=== PATIENT | female | born 1970 ===

== ENCOUNTER 2022-05-14 10:19 | Inpatient (IN) | payer MEDICAID ==
[~2022-05-14] VITALS: Ht 162.6 cm; Wt 107.3 kg
[2022-05-14 11:10] LABS: BASOPHILS % (AUTO) 0.2 % (0-1); EOSINOPHILS # (AUTO) 0.1 X10'3 (0-0.9); EOSINOPHILS % (AUTO) 0.5 % (0-6); HEMATOCRIT 42.2 % (35.0-45.0); HEMOGLOBIN 14.1 g/dl (12.0-16.0); LYMPHOCYTES # (AUTO) 4.2 X10'3 (1.1-4.8); LYMPHOCYTES % (AUTO) 26.3 % (21-51); MEAN CORPUSCULAR HEMOGLOBIN 30.6 PG (27.0-31.0); MEAN CORPUSCULAR HGB CONC 33.5 g/dL (33.0-36.5); MEAN CORPUSCULAR VOLUME 91.3 FL (78-98); MEAN PLATELET VOLUME 6.8 FL (7.4-10.4); MONOCYTES # (AUTO) 1.1 X10'3 (0-0.9); MONOCYTES % (AUTO) 7.1 % (2-12); NEUTROPHILS # (AUTO) 10.6 X10'3 (1.8-7.7); NEUTROPHILS % (AUTO) 65.9 % (42-75); PLATELET COUNT 351 X10'3 (140-440); RED BLOOD COUNT 4.62 X10'6 (4.20-5.60); RED CELL DISTRIBUTION WIDTH 16.6 % (11.5-14.5)
[2022-05-14 11:27] LABS: ALANINE AMINOTRANSFERASE 36 U/L (12-78); ALBUMIN 3.6 G/DL (3.4-5.0); ALKALINE PHOSPHATASE 76 IU/L (46-116); ANION GAP 14 (8-16); ASPARTATE AMINO TRANSFERASE 17 U/L (10-37); BILIRUBIN,TOTAL 0.4 MG/DL (0.1-1.0); BLOOD UREA NITROGEN 19 MG/DL (7-18); BUN/CREATININE RATIO 27.9 (6.6-38.0); CALCIUM 9.2 MG/DL (8.5-10.1); CHLORIDE 104 MMOL/L (99-107); CREATININE 0.68 MG/DL (0.40-0.90); GLUCOSE 128 MG/DL (70-104); LIPASE 400 U/L (73-393); POTASSIUM 3.7 MMOL/L (3.5-5.1); SODIUM 140 MMOL/L (135-145); TOTAL CARBON DIOXIDE 21.6 MMOL/L (24-32); TOTAL PROTEIN 7.1 G/DL (6.4-8.2); eGFR > 90 ML/MIN
[2022-05-14 12:12] LABS: ANISOCYTOSIS 1+; PLATELET ESTIMATE NORMAL; TOTAL CELLS COUNTED 100
[2022-05-14] MEDS ORDERED: ondansetron/PF 4mg/2ml inj IV ONE (12:40)
[2022-05-14] MEDS ORDERED: normal saline 1000ml 1,000 ML IV ONE (12:40)
[2022-05-14 13:11] LABS: APTT 21 SECONDS (22-32)
[2022-05-14] MEDS ORDERED: METO-384 PO (14:51)
[2022-05-14] MEDS ORDERED: ALPR0.5T9 PO (14:51)
[2022-05-14] MEDS ORDERED: LEVO175T7 PO (14:51)
[2022-05-14] MEDS ORDERED: DEXA4TAB PO (14:51)
[2022-05-14] MEDS ORDERED: HYDR-3972 PO (14:51)
[2022-05-14] MEDS ORDERED: HYDROcodone/acetaminophen 10/325mg tab PO PRN (15:55)
[2022-05-14] MEDS ORDERED: mag hydrox/Alum hydrox/simeth 30ml oral suspension PO PRN (16:20)
[2022-05-14] MEDS ORDERED: acetaminophen 325mg tablet PO PRN ×2 (16:20)
[2022-05-14] MEDS ORDERED: morphine 2 MG/ML inj. syringe IV PRN ×2 (16:20)
[2022-05-14] MEDS ORDERED: magnesium hydroxide 30ml (MOM) UD suspension PO PRN (16:20)
[2022-05-14] MEDS ORDERED: HYDROcodone/acetaminophen 5mg/325mg tablet PO PRN (16:20)
[2022-05-14] MEDS ORDERED: ondansetron/PF 4mg/2ml inj IV PRN (16:20)
[2022-05-14] MEDS: sodium chloride 0.45% 1,000 ML IV SCH (18:00)
[2022-05-14] MEDS: dexamethasone 4mg tablet PO SCH (19:30)
[2022-05-14] MEDS: docusate sod 100mg capsule PO SCH (19:30)
[2022-05-14 22:23] LABS: CLARITY,URINE SLIGHTLY CLOUDY (Clear); COLOR,URINE YELLOW (Yellow); GLUCOSE, URINE NEGATIVE (Neg); KETONES,URINE NEGATIVE (Neg); LEUKOCYTE ESTERASE ,URINE TRACE (Neg); NITRITES, URINE NEGATIVE (Neg); OCCULT BLOOD,URINE SMALL (Neg); PH,URINE 5.5 (4.8-8.0); PROTEIN,URINE NEGATIVE (Neg); URINE HCG NEGATIVE (NEG); UROBILINOGEN,URINE 0.2 E.U/dL (0.2-1.0)
[2022-05-14 22:24] LABS: UA COLLECTION TYPE CLN CATCH MIDSTREAM
[2022-05-14 22:30] LABS: BACTERIA,URINE 1+ /HPF (Neg); MUCUS STRANDS MANY /LPF (Neg); SQUAMOUS EPITHELIAL CELL,UR MODERATE /LPF (FEW); WBC,URINE 0-4 /HPF (0-4)
[2022-05-14 22:31] LABS: YEAST MODERATE /HPF (NEGATIVE)
[2022-05-14 22:44] LABS: URINE AMPHETAMINE SCREEN NEGATIVE (Neg); URINE BARBITUATE SCREEN NEGATIVE (Neg); URINE BENZODIAZEPINES SCREEN NEGATIVE (Neg); URINE CANNABINOID SCREEN POSITIVE (Neg); URINE COCAINE SCREEN NEGATIVE (Neg); URINE METHADONE SCREEN NEGATIVE (Neg); URINE OPIATE SCREEN NEGATIVE (Neg); URINE PHENCYCLIDINE SCREEN NEGATIVE (Neg)
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
[2022-05-15] MEDS: sodium chloride 0.45% 1,000 ML IV SCH ×3 (03:11→22:23)
[2022-05-15] MEDS: HYDROcodone/acetaminophen 10/325mg tab PO PRN ×2 (03:12→19:47)
--- NOTE | 2022-05-15 04:22 | NUR ---
MRI FORM FAXED
[2022-05-15 07:18] LABS: BASOPHILS % (AUTO) 0 % (0-1); EOSINOPHILS % (AUTO) 0.1 % (0-6); HEMATOCRIT 33.9 % (35.0-45.0); HEMOGLOBIN 11.7 g/dl (12.0-16.0); LYMPHOCYTES # (AUTO) 2.2 X10'3 (1.1-4.8); LYMPHOCYTES % (AUTO) 21.5 % (21-51); MEAN CORPUSCULAR HEMOGLOBIN 31.6 PG (27.0-31.0); MEAN CORPUSCULAR HGB CONC 34.5 g/dL (33.0-36.5); MEAN CORPUSCULAR VOLUME 91.6 FL (78-98); MEAN PLATELET VOLUME 6.7 FL (7.4-10.4); MONOCYTES # (AUTO) 0.6 X10'3 (0-0.9); MONOCYTES % (AUTO) 5.8 % (2-12); NEUTROPHILS # (AUTO) 7.4 X10'3 (1.8-7.7); NEUTROPHILS % (AUTO) 72.6 % (42-75); PLATELET COUNT 266 X10'3 (140-440); RED CELL DISTRIBUTION WIDTH 16.6 % (11.5-14.5); WHITE BLOOD COUNT 10.2 X10'3 (4.5-11.0)
[2022-05-15 07:32] LABS: ALBUMIN 2.3 G/DL (3.4-5.0); ANION GAP 9 (8-16); BLOOD UREA NITROGEN 12 MG/DL (7-18); BUN/CREATININE RATIO 32.4 (6.6-38.0); CHLORIDE 98 MMOL/L (99-107); CREATININE 0.37 MG/DL (0.40-0.90); GLUCOSE 80 MG/DL (70-104); TOTAL CARBON DIOXIDE 20.8 MMOL/L (24-32); eGFR > 90 ML/MIN
[2022-05-15 07:34] LABS: POTASSIUM 2.5 MMOL/L (3.5-5.1); SODIUM 128 MMOL/L (135-145)
[2022-05-15 07:35] LABS: CALCIUM 6.3 MG/DL (8.5-10.1)
[2022-05-15] MEDS ORDERED: non-formulary drug (Metoprolol Succinate 1 TAB) PO SCH (08:00)
[2022-05-15] MEDS: docusate sod 100mg capsule PO SCH ×2 (08:57→19:34)
[2022-05-15] MEDS: ALPRAZolam 0.5mg tablet PO SCH (08:58)
[2022-05-15] MEDS: dexamethasone 4mg tablet PO SCH ×2 (08:58→19:47)
[2022-05-15] MEDS: levoTHYROXINE 175mcg tablet PO SCH (09:33)
[2022-05-15 10:01] LABS: ANISOCYTOSIS 1+; PLATELET ESTIMATE NORMAL; SMUDGE CELLS 1+; TOTAL CELLS COUNTED 100
--- NOTE | 2022-05-15 11:43 | NUR ---
OF NOW, X2 PAGES HAVE BEEN SENT FOR DR TURK FOR K COVERAGE. INITIALLY DR HERRING WAS PAGED BUT HE ADVISED HE WAS NOT IN CHARGE OF PATIENT. DR TURK WAS THEN PAGED FOR CRITICAL LAB NOTIFICATION. OF THIS TIME HAS NOT CALLED BACK
[2022-05-15] MEDS ORDERED: potassium CL 10mEq/100ml bag 100 ML IV PRN (12:55)
[2022-05-15] MEDS ORDERED: POTASSIUM BICARB 20meq eff tab 20 MEQ TABLET.EFF PO PRN (12:55)
[2022-05-15] MEDS: POTASSIUM BICARB 20meq eff tab 20 MEQ TABLET.EFF PO PRN ×2 (13:29→18:05)
--- NOTE | 2022-05-15 16:54 | NUR ---
PAGED FOR UPDATE ON ADMISSION/DISCHAREG
[2022-05-15] MEDS: K and/or MAG REPLACEMENT MC SCH (19:34)
[2022-05-15] MEDS ORDERED: metoprolol succinate 25mg (24-HOUR) SR. Tablet PO STA (21:06)
--- NOTE | 2022-05-15 21:08 | NUR ---
BP OF 172/111 RECORDED. RN CALLED AIXA JUAREZ. AIXA JUAREZ ORDERED 25 MG PO METOPROLOL NOW AND TO REPEAT IF BP IS OVER 150 IN 4 HOURS.
[2022-05-16] MEDS ORDERED: metoprolol succinate 25mg (24-HOUR) SR. Tablet PO STA (02:23)
[2022-05-16] MEDS: HYDROcodone/acetaminophen 10/325mg tab PO PRN (04:17)
--- NOTE | 2022-05-16 04:36 | NUR ---
PT REQUESTED TO LEAVE AMA AT 0415. PT SPOKE WITH DR KRUSE AND AGREED TO STAY UNTIL MORNING. RN HELPED PT WALK TO BATHROOM. PT WAS EXTREMELY UNSTEADY ON FEET AND VERY ANXIOUS. PT WAS GIVEN PAIN MEDICATION FOR CHRONIC NECK PAIN AND REPOSITIONED IN BED
--- NOTE | 2022-05-16 06:38 | NUR ---
Assumed patient care at this time. Patient appears to be sleeping comfortably on stretcher.
[2022-05-16] MEDS: K and/or MAG REPLACEMENT MC SCH ×2 (07:58→20:00)
[2022-05-16] MEDS: dexamethasone 4mg tablet PO SCH ×2 (08:13→20:57)
[2022-05-16] MEDS: metoprolol succinate 25mg (24-HOUR) SR. Tablet PO SCH (08:13)
[2022-05-16] MEDS: docusate sod 100mg capsule PO SCH ×2 (08:13→20:57)
[2022-05-16] MEDS: ALPRAZolam 0.5mg tablet PO SCH (08:13)
[2022-05-16] MEDS: levoTHYROXINE 175mcg tablet PO SCH (08:13)
[2022-05-16] MEDS: sodium chloride 0.45% 1,000 ML IV SCH ×2 (08:14→21:42)
--- NOTE | 2022-05-16 08:30 | NUR ---
Patient ate breakfast meal.
[2022-05-16 08:36] LABS: BASOPHILS % (AUTO) 0.1 % (0-1); EOSINOPHILS % (AUTO) 0.2 % (0-6); HEMATOCRIT 41.8 % (35.0-45.0); HEMOGLOBIN 14.3 g/dl (12.0-16.0); LYMPHOCYTES # (AUTO) 3.2 X10'3 (1.1-4.8); LYMPHOCYTES % (AUTO) 24.1 % (21-51); MEAN CORPUSCULAR HEMOGLOBIN 31.4 PG (27.0-31.0); MEAN CORPUSCULAR HGB CONC 34.2 g/dL (33.0-36.5); MEAN CORPUSCULAR VOLUME 91.8 FL (78-98); MEAN PLATELET VOLUME 6.7 FL (7.4-10.4); MONOCYTES % (AUTO) 7.6 % (2-12); NEUTROPHILS # (AUTO) 9.2 X10'3 (1.8-7.7); PLATELET COUNT 301 X10'3 (140-440); RED BLOOD COUNT 4.56 X10'6 (4.20-5.60); RED CELL DISTRIBUTION WIDTH 16.5 % (11.5-14.5); WHITE BLOOD COUNT 13.5 X10'3 (4.5-11.0)
[2022-05-16 08:49] LABS: ALBUMIN 3.5 G/DL (3.4-5.0); ANION GAP 6 (8-16); BLOOD UREA NITROGEN 14 MG/DL (7-18); CHLORIDE 101 MMOL/L (99-107); GLUCOSE 115 MG/DL (70-104); MAGNESIUM 1.9 MG/DL (1.5-2.4); POTASSIUM 3.9 MMOL/L (3.5-5.1); TOTAL CARBON DIOXIDE 31.1 MMOL/L (24-32); eGFR > 90 ML/MIN
[2022-05-16 08:57] LABS: CALCIUM 9.1 MG/DL (8.5-10.1); SODIUM 138 MMOL/L (135-145)
[2022-05-16 09:32] LABS: TOTAL CELLS COUNTED 100
[2022-05-16 09:33] LABS: ANISOCYTOSIS 1+; PLATELET ESTIMATE NORMAL; SMUDGE CELLS 1+
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
--- NOTE | 2022-05-16 12:30 | NUR ---
Patient ate lunch meal.
--- NOTE | 2022-05-16 14:30 | NUR ---
Attempted to give report to nurse for room 4012, nurse currentlu in a patient's room, will call back.
--- NOTE | 2022-05-16 14:55 | NUR ---
Attempt to call nurse at this time, no answer.
--- NOTE | 2022-05-16 15:16 | NUR ---
spoke to nurse Pilar she said she will call back in few minutes to take report.
--- NOTE | 2022-05-16 15:39 | NUR ---
Report given to nurse SAPNA Quezada.
[2022-05-16 16:00] VITALS: BP 164/97
--- NOTE | 2022-05-16 16:00 | NUR ---
pt brought to 4012B by atm technician. Our tech here entered doorway of room and witnessed atm technician holding WC steady as patient stood and stepped out of chair, immediately falling to floor. She denies injury. States it doesn't matter anyway.
--- NOTE | 2022-05-16 16:20 | NUR ---
brief assessment done. Pt moves all extremities equally but weakly. Affect flat. speech monotone. Repeatedly states when asked a question or need "it doesn't matter", or "I don't have a say in anything anymore anyway". Verifies she wants to be a DNR.
--- NOTE | 2022-05-16 16:36 | NUR ---
Made comfortable in bed. Asked for pericare and sponge bath. Set up with basin and cloths. Assistance offered but refused. Instructed repeatedly to not get up without assistance. Call light given. Bed alarm on.
[2022-05-16 17:00] VITALS: BP 147/96
--- NOTE | 2022-05-16 18:00 | NUR ---
Dr Evans" from behavioral health here to see patient.
--- NOTE | 2022-05-16 18:30 | NUR ---
Problems reprioritized. Patient report given, questions answered & plan of care reviewed with Uyen ALEJO.
--- NOTE | 2022-05-16 18:38 | NUR ---
Patient in room ORTHO 4012. I have received report from SAPNA CAT and had the opportunity to ask questions and assume patient care. Addendum: 05/16/22 at 1840 by Uyen Hallman RN Amended: Links added.
--- NOTE | 2022-05-16 19:27 | NUR ---
PLEASANT TALKATIVE, SITTING UP IN THE CHAIR LEFT HAND SEISMOGRAPH COMPUTER 1/2 STRONG THE RIGHT HAND. PT ABLE TO MOVE LEFT LEG BUT C/O OF LEG WEAKNESS AND DRAGGING. C/O SENSATION LEFT SIDE TINGLING AND FINE MOTOR SKILLS OFF. PT STATES CHALLENGE TO MOVE TONGUE TO LEFT SIDE OF MOUTH BUT IT IS IMPROVING.
[2022-05-16 22:00] VITALS: BP 143/106
--- NOTE | 2022-05-17 01:50 | NUR ---
up with assistance to bedside commode, pt had cramping and loose stool .
[2022-05-17] MEDS: sodium chloride 0.45% 1,000 ML IV SCH ×3 (05:35→20:57)
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
[2022-05-17 06:00] VITALS: BP 150/105
--- NOTE | 2022-05-17 06:20 | NUR ---
Problems reprioritized. Patient report given, questions answered & plan of care reviewed with SAPNA MCCOY. Addendum: 05/17/22 at 0621 by Uyen Hallman RN Amended: Links added.
--- NOTE | 2022-05-17 06:45 | NUR ---
Patient in room ORTHO 4012B. I have received report from SAPNA JAMES and had the opportunity to ask questions and assume patient care.
[2022-05-17 06:59] LABS: ALBUMIN 3.5 G/DL (3.4-5.0); ANION GAP 8 (8-16); BLOOD UREA NITROGEN 13 MG/DL (7-18); CHLORIDE 102 MMOL/L (99-107); CREATININE 0.59 MG/DL (0.40-0.90); GLUCOSE 144 MG/DL (70-104); POTASSIUM 3.7 MMOL/L (3.5-5.1); SODIUM 139 MMOL/L (135-145); TOTAL CARBON DIOXIDE 28.8 MMOL/L (24-32); eGFR > 90 ML/MIN
[2022-05-17 07:00] LABS: BASOPHILS % (AUTO) 0.1 % (0-1); EOSINOPHILS % (AUTO) 0.1 % (0-6); HEMATOCRIT 41.3 % (35.0-45.0); LYMPHOCYTES # (AUTO) 2.3 X10'3 (1.1-4.8); LYMPHOCYTES % (AUTO) 18.3 % (21-51); MEAN CORPUSCULAR HEMOGLOBIN 31.2 PG (27.0-31.0); MEAN CORPUSCULAR VOLUME 91.9 FL (78-98); MEAN PLATELET VOLUME 7.1 FL (7.4-10.4); MONOCYTES # (AUTO) 0.7 X10'3 (0-0.9); MONOCYTES % (AUTO) 5.5 % (2-12); NEUTROPHILS # (AUTO) 9.4 X10'3 (1.8-7.7); PLATELET COUNT 333 X10'3 (140-440); RED BLOOD COUNT 4.49 X10'6 (4.20-5.60); RED CELL DISTRIBUTION WIDTH 16.3 % (11.5-14.5); WHITE BLOOD COUNT 12.3 X10'3 (4.5-11.0)
[2022-05-17 07:59] LABS: ANISOCYTOSIS 1+; PLATELET ESTIMATE NORMAL; TOTAL CELLS COUNTED 100
[2022-05-17] MEDS: K and/or MAG REPLACEMENT MC SCH ×2 (08:00→20:00)
[2022-05-17] MEDS: docusate sod 100mg capsule PO SCH ×2 (08:00→20:00)
[2022-05-17] MEDS: dexamethasone 4mg tablet PO SCH ×2 (09:11→20:57)
[2022-05-17] MEDS: levoTHYROXINE 175mcg tablet PO SCH (09:11)
[2022-05-17] MEDS: ALPRAZolam 0.5mg tablet PO SCH (09:11)
[2022-05-17 10:00] VITALS: BP 172/109
[2022-05-17 10:19] LABS: LIPASE 255 U/L (73-393)
[2022-05-17] MEDS: CefTRIAXone/D5W-Rocephin 1gm 50 ML IV SCH (13:45)
[2022-05-17] MEDS: HYDROcodone/acetaminophen 10/325mg tab PO PRN (14:33)
[2022-05-17 18:00] VITALS: BP 172/113
--- NOTE | 2022-05-17 19:34 | NUR ---
Problems reprioritized. Patient report given, questions answered & plan of care reviewed with SRUTHI Brownlee RN.
--- NOTE | 2022-05-17 19:34 | NUR ---
ABOUT MID MORNING PATIENT HAD A VISITOR, WHICH WOULD LATER IDENTIFY THEMSELVES HER . 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 I WENT IN TO THE ROOM TO INTRODUCE MYSELF TO THE VISITOR AND ASSESS THE SITUATION. BOTH WERE CALM AND SEEMED COMFORTABLE. VISITOR EXPRESSED THE PATIENT STATED THAT WE WERE THREATENING THE PATIENT AND THAT WASN'T APPROPRIATE. (THIS WAS ALSO WHAT SHE HAD BEEN SAYING ABOUT HER PARENTS AND TO THE [facility] NURSE). I EXPLAINED THAT I NEVER THREATENED HER AND IF SHE FELT THAT I HAD, I WAS SORRY. DURING THE COURSE OF THE CONVERSATION THE PATIENT EXPRESSED THAT SHE WAS CALLED A DRUG SEEKER AND WE WERE TRYING TO GET HER TO DRUG REHAB AND/OR CUSTODIAL. I EXPRESSED THAT WASN'T NOT HOW I FELT OR THE INFORMATION THAT WAS PASSED ON TO ME OR IN NOTES. AT THAT TIME SHE ASKED FOR PRIVACY WITH HER VISITOR. I PAGED THE DR ABOUT THE PATIENT WANTING TO LEAVE. I ALSO TALKED TO THE CHARGE AND CASE MANAGEMENT ABOUT THE SITUATION. A MECHANICS HANDYMAN CONSULT WAS SUGGESTED. ALSO WE LOOKED THROUGH NOTE AND SAW NO MENTION OF THE PATIENT RESTRICTING VISITOR. WAS ALSO ADVISED TO KEEP A CLOSE EYE AND WATCH FOR TENSION AND TO CALL SECRUITY IF NEEDED. AT THIS TIME [facility] WAS CALLED. DR CALLED BACK AND STATED IF PATIENT WANTED TO LEAVE THEY COULD LEAVE AMA. I WENT INTO THE ROOM A COUPLE MORE TIMES. PATIENT EXPRESSED DESIRE TO LEAVE, PATIENT WAS EDUCATED ON RISKS OF LEAVING AND BENEFITS OF STAYING, PATIENT STILL EXPRESSED DESIRE TO LEAVE. VISITOR EXPRESSED THAT FOR THE PATIENT'S SAFETY IT WOULD BE BEST TO STAY. WHILE I WAS ON LUNCH THE AIDE HEARD PATIENT SCREAMING AND WITNESSED THE VISITOR ON TOP OF PATIENT, LEFT FOOT ON THE FLOOR, RIGHT KNEE ON BED AND HAND CLOSE TO THE SHOULDER HEAD AREA AND IT APPEARED THE VISITOR WAS WHISPERING TO HER. SOON THE VISITOR HEARD THE AIDE COME IN TO ROOM HE JUMPED OFF BED AND HAD THE PATIENT'S ARMS PINNED DOWN TELLING THE PATIENT TO CALM DOWN. ANOTHER NURSE CAME IN TO ASSESS THE ISSUE AND ASKED THE PATIENT WHY SHE WAS SCREAMING AND SHE STATED SHE COULD NOT SAY ANYTHING. SECURITY WAS CALLED AND THE VISITOR WAS ADVISED TO NOT TOUCH THE PATIENT AND IF THEY WERE CALLED AGAIN HE WOULD BE ESCORTED OUT. WHEN I RETURNED I WENT IN TO ASSESS THE SITUATION. THE PATIENT EXPRESSED SHE JUST NEEDED TO GET BETTER, I TOLD HER THAT IS WHY SHE IS HERE AND THE GOAL OF HER STAY. I WAS ABLE TO MAKE HER COMFORTABLE IN STAYING IN OUR CARE AND SHE DECIDED NOT TO LEAVE. THE VISITOR PULLED ME ASIDE AND IN TALKING TO HIM HE EXPRESSED THAT WHILE THE PATIENT WAS ON A PAIN REGIMENT SHE DID NOT ABUSE THE MEDS AND THAT HE WANTED HER TO GET BETTER. THE VISITOR LEFT AT THIS TIME. THE PATIENT LATER EXPRESSED THAT THE NORCO SHE GOT EVERY MONTH GETS TAKEN BY THE VISITOR AND TO CALL THE PHARMACY. SHE ALSO EXPRESSED THAT SHE HAD BEEN LIKE THIS BEFORE AND WORKED REALLY HARD TO GET BETTER AND WANTED TO GET BETTER NOW. I EXPRESSED THAT GETTING HER BETTER WAS THE PLAN. LATER THE PATIENT HAD EXPRESSED TO ONE OF THE AIDE THAT SHE DID NOT WANT THE VISITOR TO BE LET BACK IN. AT THIS TIME I CONTACTED THE [facility] AND WE HAVE MADE THE PATIENT A CONFIDENTIAL PATIENT FOR HER SAFETY.
[2022-05-17 22:00] VITALS: BP 127/86
[2022-05-18 06:00] VITALS: BP 189/121
[2022-05-18 06:24] LABS: BASOPHILS % (AUTO) 0.1 % (0-1); EOSINOPHILS % (AUTO) 0 % (0-6); HEMATOCRIT 45.8 % (35.0-45.0); HEMOGLOBIN 15.4 g/dl (12.0-16.0); LYMPHOCYTES # (AUTO) 2.9 X10'3 (1.1-4.8); LYMPHOCYTES % (AUTO) 20.2 % (21-51); MEAN CORPUSCULAR HEMOGLOBIN 30.9 PG (27.0-31.0); MEAN CORPUSCULAR HGB CONC 33.5 g/dL (33.0-36.5); MEAN CORPUSCULAR VOLUME 92.2 FL (78-98); MEAN PLATELET VOLUME 6.9 FL (7.4-10.4); MONOCYTES # (AUTO) 0.8 X10'3 (0-0.9); MONOCYTES % (AUTO) 5.5 % (2-12); NEUTROPHILS # (AUTO) 10.7 X10'3 (1.8-7.7); NEUTROPHILS % (AUTO) 74.2 % (42-75); PLATELET COUNT 370 X10'3 (140-440); RED BLOOD COUNT 4.97 X10'6 (4.20-5.60); RED CELL DISTRIBUTION WIDTH 16.4 % (11.5-14.5); WHITE BLOOD COUNT 14.4 X10'3 (4.5-11.0)
[2022-05-18 06:33] LABS: ALBUMIN 3.7 G/DL (3.4-5.0); ANION GAP 9 (8-16); BLOOD UREA NITROGEN 11 MG/DL (7-18); CALCIUM 9.1 MG/DL (8.5-10.1); CHLORIDE 101 MMOL/L (99-107); CREATININE 0.61 MG/DL (0.40-0.90); GLUCOSE 121 MG/DL (70-104); MAGNESIUM 1.9 MG/DL (1.5-2.4); POTASSIUM 3.5 MMOL/L (3.5-5.1); SODIUM 139 MMOL/L (135-145); eGFR > 90 ML/MIN
--- NOTE | 2022-05-18 06:43 | NUR ---
Patient in room ORTHO 4012B. I have received report from SRUTHI Brownlee RN and had the opportunity to ask questions and assume patient care.
[2022-05-18 07:48] VITALS: BP 162/113
[2022-05-18] MEDS: levoTHYROXINE 175mcg tablet PO SCH (07:59)
[2022-05-18] MEDS: ALPRAZolam 0.5mg tablet PO SCH (07:59)
[2022-05-18] MEDS: CefTRIAXone/D5W-Rocephin 1gm 50 ML IV SCH (07:59)
[2022-05-18] MEDS: dexamethasone 4mg tablet PO SCH ×2 (07:59→19:31)
[2022-05-18] MEDS: metoprolol succinate 25mg (24-HOUR) SR. Tablet PO SCH (07:59)
[2022-05-18] MEDS: K and/or MAG REPLACEMENT MC SCH ×2 (08:00→19:04)
[2022-05-18] MEDS: docusate sod 100mg capsule PO SCH ×2 (08:00→19:05)
[2022-05-18 10:00] VITALS: BP 153/96
[2022-05-18] MEDS ORDERED: metoprolol succinate 25mg (24-HOUR) SR. Tablet PO SCH (10:40)
[2022-05-18] MEDS: lisinopril 5mg tablet PO SCH (11:06)
[2022-05-18] MEDS ORDERED: hydrALAZINE 20mg/ml inj. IV SCH (14:00)
[2022-05-18 16:15] VITALS: BP 132/98
[2022-05-18 18:00] VITALS: BP 157/97
--- NOTE | 2022-05-18 18:49 | NUR ---
Page sent to MD Leblanc as she had discontinued patient home medication Decadron for which she takes for adrenal insufficiency. Requested to for order to re-order medication as patient takes at home.
--- NOTE | 2022-05-18 18:52 | NUR ---
Received call back from MD Leblanc with orders to restart Decadron at patient home dosage.
--- NOTE | 2022-05-18 19:10 | NUR ---
Problems reprioritized. Patient report given, questions answered & plan of care reviewed with SRUTHI Brownlee RN.
[2022-05-18 22:00] VITALS: BP 115/68
[2022-05-18] MEDS ORDERED: hydrALAZINE 20mg/ml inj. IV PRN (23:00)
[2022-05-19 06:00] VITALS: BP 132/95
--- NOTE | 2022-05-19 06:57 | NUR ---
Patient in room ORTHO 4012B. I have received report from SRUTHI Brownlee RN and had the opportunity to ask questions and assume patient care.
[2022-05-19 07:57] LABS: BASOPHILS % (AUTO) 0.1 % (0-1); EOSINOPHILS % (AUTO) 0.1 % (0-6); HEMATOCRIT 43.9 % (35.0-45.0); LYMPHOCYTES # (AUTO) 3.4 X10'3 (1.1-4.8); LYMPHOCYTES % (AUTO) 22.7 % (21-51); MEAN CORPUSCULAR HEMOGLOBIN 31.3 PG (27.0-31.0); MEAN CORPUSCULAR HGB CONC 34.2 g/dL (33.0-36.5); MEAN CORPUSCULAR VOLUME 91.5 FL (78-98); MEAN PLATELET VOLUME 6.8 FL (7.4-10.4); MONOCYTES # (AUTO) 0.8 X10'3 (0-0.9); MONOCYTES % (AUTO) 5.5 % (2-12); NEUTROPHILS # (AUTO) 10.6 X10'3 (1.8-7.7); NEUTROPHILS % (AUTO) 71.6 % (42-75); PLATELET COUNT 400 X10'3 (140-440); RED CELL DISTRIBUTION WIDTH 16.6 % (11.5-14.5); WHITE BLOOD COUNT 14.8 X10'3 (4.5-11.0)
[2022-05-19] MEDS: docusate sod 100mg capsule PO SCH ×2 (08:00→19:59)
[2022-05-19] MEDS: K and/or MAG REPLACEMENT MC SCH ×2 (08:00→19:59)
[2022-05-19 08:29] LABS: ALBUMIN 3.8 G/DL (3.4-5.0); ANION GAP 16 (8-16); BLOOD UREA NITROGEN 11 MG/DL (7-18); BUN/CREATININE RATIO 19.6 (6.6-38.0); CALCIUM 9.1 MG/DL (8.5-10.1); CHLORIDE 103 MMOL/L (99-107); CREATININE 0.56 MG/DL (0.40-0.90); GLUCOSE 111 MG/DL (70-104); MAGNESIUM 1.7 MG/DL (1.5-2.4); POTASSIUM 3.3 MMOL/L (3.5-5.1); SODIUM 143 MMOL/L (135-145); TOTAL CARBON DIOXIDE 23.8 MMOL/L (24-32); eGFR > 90 ML/MIN
[2022-05-19] MEDS: CefTRIAXone/D5W-Rocephin 1gm 50 ML IV SCH (08:38)
[2022-05-19] MEDS: levoTHYROXINE 175mcg tablet PO SCH (08:38)
[2022-05-19] MEDS: dexamethasone 4mg tablet PO SCH ×2 (08:38→20:01)
[2022-05-19] MEDS: ALPRAZolam 0.5mg tablet PO SCH (08:38)
[2022-05-19] MEDS: metoprolol tartrate 50mg tablet PO SCH ×2 (08:39→20:03)
[2022-05-19] MEDS: lisinopril 5mg tablet PO SCH (08:39)
[2022-05-19 08:49] LABS: PLATELET ESTIMATE NORMAL; TOTAL CELLS COUNTED 100
[2022-05-19 08:50] LABS: ANISOCYTOSIS 1+
[2022-05-19 10:00] VITALS: BP 160/107
--- NOTE | 2022-05-19 12:06 | NUR ---
Initial: Pt admit for neck pain and weakness. Currently on a heart healthy diet and eating poorly, documented with ~25% PO intake of four meals with refusal of the remaining three meals since admit. Pt seen at bedside, limited information obtained as pt appeared distracted and unable to fully respond appropriately to questions being asked. Pt emotional at times during RD visit and expressed inability to focus with all that is going on. Pt states appetite fluctuates and denies any known food allergies or food preferences. Pt states she appreciates anything she's getting and will leave it up to us what she gets on her meal trays. Pt does agree to Ensure with meals, recommend Ensure Enlive TID, pending physician approval in EMR. See below for additional nutrition interventions that were d/w dietary. Pt unsure if she has any issues chewing or swallowing and is unable to recall if she has ever experienced a choking episode with PO intake. Pt provided with RD contact information and encouraged to reach out for any food preferences to optimize PO intake during admit. Patient's behavior during RD visit was d/w SW. LBM 05/18. Will continue to follow closely. Recommendations: 1) Liberalize to regular diet 2) Ensure Enlive TID, pending physician approval in EMR 3) Trial yogurt WB, smoothie BIDLD 4) Encourage PO intake and honor food preferences 5) Bowel care PRN; consider anti-diarrheal if diarrhea persists 6) Scaled weight this admit; subsequent weekly scaled weights Addendum: 05/19/22 at [address] Amended: Links added.
[2022-05-19 14:00] VITALS: BP 126/72
[2022-05-19 18:00] VITALS: BP 137/92
[2022-05-19] MEDS ORDERED: potassium CL 10mEq/100ml bag 100 ML IV PRN (19:35)
[2022-05-19] MEDS ORDERED: magnesium 4gm in 100ml NS 100 ML IV PRN (19:35)
[2022-05-19] MEDS ORDERED: magnesium Cl slow-release 64mg tablet PO PRN (19:35)
[2022-05-19] MEDS ORDERED: potassium Cl 20 mEq SR tablet PO PRN ×2 (19:35)
--- NOTE | 2022-05-19 19:52 | NUR ---
Problems reprioritized. Patient report given, questions answered & plan of care reviewed with SRUTHI Brownlee RN.
[2022-05-19 22:00] VITALS: BP 123/68
[2022-05-20 06:00] VITALS: BP 145/84
--- NOTE | 2022-05-20 06:36 | NUR ---
Patient in room ORTHO 4012. I have received report from almas guevara and had the opportunity to ask questions and assume patient care.
[2022-05-20] MEDS: K and/or MAG REPLACEMENT MC SCH (07:09)
[2022-05-20] MEDS: docusate sod 100mg capsule PO SCH (07:23)
[2022-05-20] MEDS: ALPRAZolam 0.5mg tablet PO SCH (07:24)
[2022-05-20] MEDS: lisinopril 5mg tablet PO SCH (07:24)
[2022-05-20] MEDS: metoprolol tartrate 50mg tablet PO SCH (07:24)
[2022-05-20] MEDS: dexamethasone 4mg tablet PO SCH (07:24)
[2022-05-20] MEDS: levoTHYROXINE 175mcg tablet PO SCH (07:25)
[2022-05-20] MEDS: amox tr/potassium clavulanate 875/125mg TAB PO SCH ×2 (07:27→17:33)
[2022-05-20 11:55] VITALS: BP 119/83
[2022-05-20 15:01] VITALS: BP 144/84
--- NOTE | 2022-05-20 16:10 | NUR ---
PAGED DR TURK RE: PAGER ID: [phone] MESSAGE: GARY TURPIN. PER SS...'[facility] IS WILLING TO TAKE PT BACK TONIGHT. THEY HAVE TO PICK HER UP BEFORE 1730. CAN WE GET A DISCHARGE ORDER? SHE WAS CLEARED BY [facility]. EDIN [id number]
--- NOTE | 2022-05-20 16:51 | NUR ---
2ND PAGE TO DR TURK RE: PAGER ID: [phone] MESSAGE: GARY TURPIN. WE NEED DISCHARGE ORDERS FOR PT TO GO BACK TO [facility] TODAY. FACILITY WILL BE HERE BEFORE 1730. PLEASE LET ME KNOW IF YOU PLAN ON DISCHARGING OR NOT SO I CAN LET THE FACILTIY KNOW. THANKS EDIN [id number]
[2022-05-20] MEDS ORDERED: LISI5TAB22 PO ×2 (17:43)
[2022-05-20] MEDS ORDERED: METO50TA16 PO ×2 (17:43)
--- NOTE | 2022-05-20 18:06 | NUR ---
PT WAS DISCHARGED IN STABLE CONDITION AFTER BEING CLEARED FROM [facility]. SHE WAS DISCHARGED TO '[facility] VIA THEIR STAFF. IV DC CANULA INTACT. ALL BELONGINGS IN HAND. FOLLOW UP INSTRUCTION GIVEN. PT AND STAFF MEMBER NOTIFIED OF MEDICATIONS THAT NEED TO BE PICKED UP FROM [facility]. Addendum: 05/20/22 at 1808 by Marlee Jalloh RN Amended: Links added.
[2022-05-26] MEDS ORDERED: CEPH250T PO (02:46)
[2022-05-26] MEDS ORDERED: HYDR-3972 PO (02:48)
[2022-05-26] MEDS ORDERED: METO-384 PO (02:49)
== END 2022-05-20 18:00 | disposition home or self-care (01) | DRG 347 ==
LOC: ER 10:20 → OBSVTOIN 16:24 → ED HOLD 16:24 → INTOOBSV 16:24 → EEVIPCON 16:24 → ORTHO 4S 05-16 15:50
PROVIDERS: ADMIT Internal Medicine; ATTEND Internal Medicine
DX: M48.02 Spinal stenosis, cervical region (principal); D64.9 Anemia, unspecified; N39.0 Urinary tract infection, site not specified; B96.20 Unspecified Escherichia coli [E. coli] as the cause of diseases classified elsewhere; M51.36 Other intervertebral disc degeneration, lumbar region; E03.9 Hypothyroidism, unspecified; F17.210 Nicotine dependence, cigarettes, uncomplicated; I10 Essential (primary) hypertension; M47.896 Other spondylosis, lumbar region; Z20.822 Contact with and (suspected) exposure to COVID-19; Z66 Do not resuscitate; F41.9 Anxiety disorder, unspecified; Z98.1 Arthrodesis status; Z88.5 Allergy status to narcotic agent; Z79.899 Other long term (current) drug therapy
CPT/HCPCS: 36415; 70450; 70551; 71045; 72141; 72148; 76700; 80048; 80053; 80305; 81001; 81025; 82948; 83690; 83735; 83880; 84132; 84145; 85007; 85025; 85610; 85651; 85730; 86885; 86900; 86901; 87077; 87081; 87088; 87186; 87811; 93005; 96361; 96374; 97116; 97161; 97530; 99285; G0378; J0360; J0696; J2405; J3490; J7030

== ENCOUNTER 2024-04-07 19:09 | Emergency (ER) | payer MEDICAID ==
[~2024-04-07] VITALS: Ht 162.6 cm; Wt 94.4 kg
[~2024-04-07 19:09] MED LIST: ASPI-1071 PO; ATOR40TA71 PO; CLON0.5T4 PO; DEXA4TAB PO; ESCI20TA39 PO; LEVO175T7 PO; LISI2.5T14 PO; METF-1203 PO; METO-384 PO; RISP-32 PO; TRAZ-256 PO
[2024-04-07 19:56] LABS: BASOPHILS # (AUTO) 0.1 X10'3 (0-0.2); BASOPHILS % (AUTO) 0.4 % (0-1); EOSINOPHILS % (AUTO) 0 % (0-6); HEMATOCRIT 44.3 % (35.0-45.0); HEMOGLOBIN 14.8 g/dl (12.0-16.0); LYMPHOCYTES # (AUTO) 2.5 X10'3 (1.1-4.8); LYMPHOCYTES % (AUTO) 20.5 % (21-51); MEAN CORPUSCULAR HEMOGLOBIN 30.2 PG (27.0-31.0); MEAN CORPUSCULAR HGB CONC 33.3 g/dL (33.0-36.5); MEAN CORPUSCULAR VOLUME 90.9 FL (78-98); MONOCYTES # (AUTO) 0.3 X10'3 (0-0.9); MONOCYTES % (AUTO) 2.1 % (2-12); NEUTROPHILS # (AUTO) 9.4 X10'3 (1.8-7.7); PLATELET COUNT 493 X10'3 (140-440); RED BLOOD COUNT 4.88 X10'6 (4.20-5.60); RED CELL DISTRIBUTION WIDTH 16.2 % (11.5-14.5); WHITE BLOOD COUNT 12.2 X10'3 (4.5-11.0)
[2024-04-07 20:06] LABS: ALBUMIN 4.2 G/DL (3.4-5.0); ANION GAP 10 (8-16); BLOOD UREA NITROGEN 17 MG/DL (7-18); BUN/CREATININE RATIO 20.7 (10.0-20.0); CALCIUM 9.7 MG/DL (8.5-10.1); CHLORIDE 103 MMOL/L (99-107); CREATININE 0.82 MG/DL (0.40-0.90); GLUCOSE 152 MG/DL (70-104); SODIUM 139 MMOL/L (135-145); TOTAL CARBON DIOXIDE 26.4 MMOL/L (24-32); eCRCL 69 ML/MIN; eGFR 73 ML/MIN
[2024-04-07 20:15] LABS: ETHANOL < 10 MG/DL (<10)
[2024-04-07] MEDS ORDERED: ACET-2778 PO (20:16)
[2024-04-07 21:29] LABS: URINE AMPHETAMINE SCREEN NEGATIVE (Neg); URINE BARBITUATE SCREEN NEGATIVE (Neg); URINE BENZODIAZEPINES SCREEN NEGATIVE (Neg); URINE CANNABINOID SCREEN NEGATIVE (Neg); URINE COCAINE SCREEN NEGATIVE (Neg); URINE METHADONE SCREEN NEGATIVE (Neg); URINE OPIATE SCREEN NEGATIVE (Neg); URINE PHENCYCLIDINE SCREEN NEGATIVE (Neg)
[2024-04-08] MEDS ORDERED: DEC4T PO (01:00)
[2024-04-08] MEDS ORDERED: SYN0.088T PO (01:02)
[2024-04-08] MEDS ORDERED: METO-467 PO (01:04)
[2024-04-08] MEDS: LORazepam 1 MG tablet PO ONE (01:35)
[2024-04-08] MEDS: haloperidol 5mg tablet PO ONE (01:36)
[2024-04-08] MEDS: diphenhydrAMINE 25mg capsule PO ONE (01:36)
[2024-04-08] MEDS: acetaminophen 325mg tablet PO SCH (07:25)
[2024-04-08] MEDS: metoprolol tartrate 50mg tablet PO SCH (07:26)
[2024-04-08] MEDS: levoTHYROXINE 88mcg tablet PO SCH (07:26)
[2024-04-08] MEDS: ketorolac tromethamine 15mg/ml inj. IM ONE (07:27)
[2024-04-08] MEDS ORDERED: dexamethasone 4mg tablet PO SCH (08:00)
[2024-04-08 10:15] LABS: ALANINE AMINOTRANSFERASE 19 U/L (12-78); ALBUMIN/GLOBULIN RATIO 1.1 (1.1-1.5); ALKALINE PHOSPHATASE 91 IU/L (46-116); ASPARTATE AMINO TRANSFERASE 12 U/L (10-37); BILIRUBIN,DIRECT 0.1 MG/DL (0-0.3); BILIRUBIN,TOTAL 0.3 MG/DL (0.1-1.0); TOTAL PROTEIN 8.2 G/DL (6.4-8.2)
[2024-04-08 10:18] LABS: BILIRUBIN,URINE NEGATIVE (Neg); CLARITY,URINE CLEAR (Clear); COLOR,URINE YELLOW (Yellow); GLUCOSE, URINE NEGATIVE (Neg); KETONES,URINE NEGATIVE (Neg); LEUKOCYTE ESTERASE ,URINE TRACE (Neg); NITRITES, URINE NEGATIVE (Neg); OCCULT BLOOD,URINE NEGATIVE (Neg); PH,URINE 6.5 (4.8-8.0); PROTEIN,URINE NEGATIVE (Neg); UA COLLECTION TYPE CLN CATCH MIDSTREAM; UROBILINOGEN,URINE 0.2 E.U/dL (0.2-1.0)
[2024-04-08 10:22] LABS: THYROID STIMULATING HORMONE 67.76 ulU/ml (0.34-4.50)
[2024-04-08 10:32] LABS: MUCUS STRANDS FEW /LPF (Neg); SQUAMOUS EPITHELIAL CELL,UR MODERATE /LPF (FEW)
[2024-04-08 10:34] LABS: BACTERIA,URINE FEW /HPF (Neg); RBC,URINE NONE SEEN /HPF (0-2)
[2024-04-08 10:35] LABS: WBC CLUMPS,URINE FEW /HPF (NEGATIVE); WBC,URINE 20-30 /HPF (0-4)
[2024-04-09] MEDS: LORazepam 0.5 MG tablet PO ONE (03:02)
[2024-04-09] MEDS: OLANZapine 5mg rapidly disint. tablet PO ONE (03:03)
[2024-04-09] MEDS: hydrALAZINE 25 MG tablet PO ONE (09:29)
[2024-04-09 14:11] VITALS: BP 129/93; PULSE 50; RESP 16; TEMP 98.2; O2SAT 99
== END 2024-04-09 14:22 | disposition still patient (30) ==
LOC: ER 19:10
DX: R45.851 Suicidal ideations (principal); Z20.822 Contact with and (suspected) exposure to COVID-19; R44.0 Auditory hallucinations; Z88.5 Allergy status to narcotic agent; Z88.6 Allergy status to analgesic agent; Z79.1 Long term (current) use of non-steroidal anti-inflammatories (NSAID); Z79.899 Other long term (current) drug therapy
CPT/HCPCS: 36415; 80048; 80076; 80305; 80320; 81001; 84443; 85025; 87088; 87811; 96372; 99285; J1885; Q0163